=== PATIENT | male | born 1965 | race Caucasian/White ===

== ENCOUNTER 2016-04-10 12:24 | Emergency (ER) | payer MEDICAID, OTHER ==
[2016-04-10] MEDS ORDERED: ONDANSETRON ODT 4 MG TAB ONE (13:35)
[2016-04-10] MEDS ORDERED: KETOROLAC 60 MG/2 ML VIAL IM ONE (13:35)
[2016-04-10] MEDS ORDERED: DILAUDID 1 MG/ML AMP ONE (13:35)
== END 2016-04-10 16:28 | disposition home or self-care (01) ==
LOC: FASTR 12:24
DX: M43.16 Spondylolisthesis, lumbar region (principal); M54.16 Radiculopathy, lumbar region; T84.226A Displacement of internal fixation device of vertebrae, initial encounter; F17.200 Nicotine dependence, unspecified, uncomplicated
CPT/HCPCS: 72131; 96372